=== PATIENT | male | born 1935 | race Caucasian/White ===

== ENCOUNTER 2016-08-26 04:59 | Observation (INO) | payer MEDICARE ==
[2016-08-26] VITALS (7 sets, daily range): BP systolic 122–143; BP diastolic 59–75; PULSE 71–112; RESP 18–20; TEMP 98.2–102.5; O2SAT 90–97
[~2016-08-26] VITALS: Ht 177.8 cm; Wt 90.0 kg
[2016-08-26] MEDS ORDERED: GABA600T PO (05:16)
[2016-08-26] MEDS ORDERED: ZOLP10TA3 PO (05:16)
[2016-08-26] MEDS ORDERED: CLOP75TA PO (05:16)
[2016-08-26] MEDS ORDERED: NITR1SUB2 SL (05:16)
[2016-08-26] MEDS ORDERED: HYDR50TA15 PO (05:16)
[2016-08-26] MEDS ORDERED: NIAC500T5 PO (05:16)
[2016-08-26] MEDS ORDERED: EZET1TAB8 PO (05:16)
[2016-08-26] MEDS ORDERED: OMEP20TA PO (05:16)
[2016-08-26] MEDS ORDERED: AZITHROMYCIN INJ 500 MG in SODIUM CHLOR 0.9% 250 ML INJ 250 ML IV ONE (05:30)
[2016-08-26] MEDS ORDERED: cefTRIAXone INJ 1,000 MG in SODIUM CHLORIDE 0.9% INJ 100 ML IV ONE (05:30)
[2016-08-26] MEDS ORDERED: ACETAMINOPHEN 325 MG TAB PO ONE (05:30)
[2016-08-26] MEDS ORDERED: SODIUM CHLORID 0.9% 500 ML INJ 500 ML IV ONE (05:30)
[2016-08-26 05:44] LABS: AUTOMATED NEUTROPHIL # 13.4 TH/MM3 (1.8-7.7); BASOPHIL % 0.2 % (0.0-2.0); EOSINOPHIL # 0.2 TH/MM3 (0-0.4); EOSINOPHIL % 1.2 % (0.0-4.0); HEMATOCRIT 44.5 % (39.0-51.0); HEMO FLAGS DIFF FINAL; LYMPH % 4.5 % (9.0-44.0); LYMPHOCYTE # 0.7 TH/MM3 (1.0-4.8); MEAN CELL VOLUME 91.3 FL (80.0-100.0); MEAN CORPUSCULAR HEMOGLOBIN 31.5 PG (27.0-34.0); MEAN CORPUSCULAR HGB CONC 34.5 % (32.0-36.0); MONO % 3.2 % (0.0-8.0); NEUT % 90.9 % (16.0-70.0); PLATELET COUNT 196 TH/MM3 (150-450); RED BLOOD COUNT 4.88 MIL/MM3 (4.50-5.90); RED CELL DISTRIBUTION WIDTH 13.6 % (11.6-17.2); WHITE BLOOD COUNT 14.8 TH/MM3 (4.0-11.0)
[2016-08-26 05:56] LABS: APTT (PATIENT) 23.8 SEC (24.3-30.1); PROTHROMBIN TIME - PATIENT 11.3 SEC (9.8-11.6)
[2016-08-26 06:10] LABS: ALKALINE PHOSPHATASE 126 U/L (45-117); ALT (GPT) 23 U/L (12-78); ANION GAP 8 MEQ/L (5-15); AST (GOT) 36 U/L (15-37); BICARBONATE 23.7 MEQ/L (21.0-32.0); BLOOD UREA NITROGEN 28 MG/DL (7-18); CHLORIDE 108 MEQ/L (98-107); CREATINE KINASE 90 U/L (39-308); GLOMERULAR FILTRATION RATE 50 ML/MIN (>89); MAGNESIUM 1.6 MG/DL (1.5-2.5); POTASSIUM 4.6 MEQ/L (3.5-5.1); SODIUM (NA) 140 MEQ/L (136-145); TOTAL BILIRUBIN ADULT 0.4 MG/DL (0.2-1.0)
--- NOTE | 2016-08-26 06:13 | RADRPT ---
EXAM DATE/TIME: 08/26/2016 06:03 [facility] COMPARISON: No previous studies available for comparison. INDICATIONS : Fever and short of breath. MEDICAL HISTORY : Myocardial infarction. SURGICAL HISTORY : Coronary artery stent. ENCOUNTER: Initial ACUITY: 1 day PAIN SCORE: 0/10 LOCATION: Bilateral chest FINDINGS: Left lung is clear. Heart size normal. Aorta is tortuous and calcified. There is consolidation in the right upper and lower lobes. No effusions. CONCLUSION: Pneumonia. Juan R Glez MD on August 26, 2016 at 6:11 Board Certified Radiologist. This report was verified electronically.
[2016-08-26] MEDS ORDERED: IOHEXOL 350 MG/ML 50 ML BTL (for RAD DIAG) IV ONE (07:10)
[2016-08-26] MEDS ORDERED: NALOXONE HCL 0.4 MG/ML AMP IV PRN (07:15)
[2016-08-26] MEDS ORDERED: SODIUM CHLORIDE 0.9% FLUSH 5 ML FLUSH FLUSH PRN (07:15)
[2016-08-26] MEDS ORDERED: ONDANSETRON HCL 4 MG/2 ML VIAL IVP PRN (07:15)
--- NOTE | 2016-08-26 07:45 | RADRPT ---
EXAM DATE/TIME: 08/26/2016 07:07 [facility] COMPARISON: CHEST SINGLE AP, August 26, 2016, 6:03. INDICATIONS : Short of breath. Fever. IV CONTRAST: 50 cc Omnipaque 350 (iohexol) IV RADIATION DOSE: 23.16 CTDIvol (mGy) MEDICAL HISTORY : Hypertension. SURGICAL HISTORY : Appendectomy. ENCOUNTER: Initial ACUITY: 1 day PAIN SCALE: 0/10 LOCATION: chest TECHNIQUE: Volumetric scanning of the chest was performed using a pulmonary embolism protocol MIP images were re constructed. Using automated exposure control and adjustment of the mA and/or kV according to patien t size, radiation dose was kept as low as reasonably achievable to obtain optimal diagnostic quality images. FINDINGS: PULMONARY ARTERIES: No filling defects are seen in the pulmonary arteries through the segmental level. LUNGS: As noted on the plain film examination, there is a rather extensive pneumonic infiltrate involving po rtions of the upper and lower lobe. PLEURAE: There is no pleural thickening or pleural effusion. MEDIASTINUM: There is good visualization of the great vessels of the middle mediastinum. No evidence of mediastin al or hilar adenopathy/mass. Atherosclerotic calcification of the coronary arteries and thoracic aort a. MUSCULOSKELETAL: Within normal limits for patient age. MISCELLANEOUS: The visualized upper abdominal organs demonstrate no acute abnormality. There may be a punctate galls tone in the gallbladder neck. CONCLUSION: 1. Pneumonic infiltrate involving portions of the right upper and right lower lobe. 2. No pulmonary embolus. Benji Cuevas MD on August 26, 2016 at 7:41 Board Certified Radiologist. This report was verified electronically.
[2016-08-26] MEDS ORDERED: SODIUM CHLOR 0.9% 1000 ML INJ 1,000 ML IV ONE ×2 (07:53)
[2016-08-26] MEDS ORDERED: SODIUM CHLOR 0.9% 1000 ML INJ 700 ML IV ONE (07:53)
--- NOTE | 2016-08-26 07:53 | PD ---
HPI Chief Complaint: Fever Time Seen by Provider: 05:18 Travel History International Travel<30 days: No Contact w/Intl Traveler<30days: No Traveled to known affect area: No History of Present Illness HPI The patient is an 81 year old male who presents to the [facility] emergency department with a history of awakening with chills, right versus 4 AM. The patient reports that he also noticed at that time that he had congestion and a cough. Prior to this he had been feeling well. He reports that on August 10 he underwent an eyelid lifts and has been recovering well. He reports that since then he has been urinating more frequently at night. He reports that normally he urinates 2 times per night, however recently it is been 4 times per night. The patient reports that he does have a history of benign prostatic hypertrophy. He denies having any dysuria or urinary urgency. He reports that he recently did travel from [place]. He is visiting friends. He reports that he only stopped once during the travel by car. He denies having any lower extremity edema, calf pain, or erythema. He does however report having a history of right foot pain intermittently for the last 4 days. He denies having any erythema or ecchymosis. He denies having any known trauma to the foot. The patient denies having any chest pain or chest pressure. He reports that he has had dyspnea on exertion since yesterday. The patient arrives with an O2 saturation on room air of 89%Th With an elevated temperature to 102.5. The patient denies any neck pain, abdominal pain, vomiting, diarrhea, or neurologic symptoms. [facility] Past Medical History Narrative Medical The patient's past medical history is significant for benign prostatic hypertrophy, hyperlipidemia, hypertension, coronary artery disease status post 2 prior myocardial infarctions. The patient had his first myocardial infarction in 2009, second 2012. He had a cerebrovascular accident in 2012 without any residual weakness, history of a heart murmur. The patient denies any prior history of DVT or PE. Cardiac Catheterization: Yes High Cholesterol: Yes Diminished Hearing: No Hypertension: Yes Medical other: Yes (BPH) Tetanus Vaccination: Unknown Influenza Vaccination: Yes Past Surgical History Narrative Surgical The patient's past surgical history is significant for an appendectomy, back surgery, cardiac catheterization with a total of 11 stents placed, eyelid lift August 10, 2016, bilateral knee replacement. Appendectomy: Yes Eye Surgery: Yes (EYELID SX 08/10/16) Other Surgery: Yes (BACK SX) Social History Alcohol Use: Yes (DAILY, COUPLE DAILY) Tobacco Use: No Substance Use: No Allergies-Medications (Allergen,Severity, Reaction): Coded Allergies: No Known Allergies (Unverified , 08/26/16) Reported Meds & Prescriptions Reported Meds & Active Scripts Active Reported Aspirin 81 Mg Tabdr 81 Mg PO DAILY Amlodipine (Amlodipine Besylate) 10 Mg Tab 10 Mg PO DAILY Tamsulosin (Tamsulosin HCl) 0.4 Mg Cap 0.4 Mg PO DAILY Hydrocodone-Acetaminophen 5-325 mg Tab 1 Tab PO Q4H PRN Zolpidem (Zolpidem Tartrate) 10 Mg Tab 10 Mg PO HS PRN Omeprazole 20 Mg Tab 20 Mg PO DAILY Nitroglycerin SL (Nitroglycerin) 0.3 Mg Subl 0.3 Mg SL DIRECTED PRN ONE TABLET UNDER THE TONGUE NEEDED FOR CHEST PAIN, MAY REPEAT EVERY FIVE MINUTES FOR A TOTAL OF 3 DOSES OR CALL 911 IF NO RELIEF Niacin 500 Mg Tab 500 Mg PO DAILY Hydralazine (Hydralazine HCl) 50 Mg Tab 25 Mg PO BID Take with a meal Ezetimibe 10 Mg Tab 10 Mg PO DAILY Clopidogrel (Clopidogrel Bisulfate) 75 Mg Tab 75 Mg PO DAILY Gabapentin 600 Mg Tab 600 Mg PO TID Review of Systems Except as stated in HPI: all other systems reviewed are Neg General / Constitutional: Positive: Fever, Chills Eyes: No: Visual changes HENT: Positive: Congestion, No: Headaches Cardiovascular: Positive: Dyspnea on exertion, No: Chest Pain or Discomfort Respiratory: Positive: Cough, Shortness of Breath Gastrointestinal: No: Nausea, Vomiting, Diarrhea, Abdominal Pain Genitourinary: Positive: Frequency, No: Urgency, Dysuria Musculoskeletal: No: Pain Skin: No Rash Neurologic: No: Weakness, Focal Abnormalities, Change in Mentation, Slurred Speech, Sensory Disturbance Psychiatric: No: Depression Endocrine: No: Polydipsia Hematologic/Lymphatic: No: Easy Bruising Physical Exam Narrative General: The patient is a well-developed well-nourished male in no acute distress. Head and Neck exam: Head is normocephalic atraumatic. Eyes: EOMI, pupils are equal round and reactive to light. Nose: Midline septum with pink mucous membranes Mouth: Dentition unremarkable. Moist mucus membranes. Posterior oropharynx is not erythematous. No tonsillar hypertrophy. Uvula midline. Airway patent. Neck: No palpable lymphadenopathy. No nuchal rigidity. No thyromegaly. Cardiovascular: Regular rate and rhythm with 3/6 systolic murmur. The patient reports having a chronic history of a murmur. No pulse deficit to the extremities and simultaneous auscultation and palpation of his radial artery. Lungs: The patient has scattered rhonchi throughout bilateral lung pandya with crackles audible in the left lung base. No wheezes, no accessory muscle use. No tripoding. Abdomen: Soft, without tenderness to palpation in all 4 quadrants of the abdomen. No guarding, rebound, or rigidity. Negative [place] sign. Extremities: No clubbing, cyanosis, or edema. 2+ pulses in all 4 extremities. No calf tenderness on palpation. The patient on examination of the right foot where he has had pain recently, the patient has no swelling, no ecchymosis, no crepitus or step-off. No pain on palpation at this time. Back: No spinous process tenderness to palpation. No costovertebral angle tenderness to palpation. Neurologic Exam: Grossly nonfocal. Skin Exam: No rash noted. Intact skin that is warm and dry. Data Data Last Documented VS Vital Signs Date Time Temp Pulse Resp B/P Pulse Ox O2 Delivery O2 Flow Rate FiO2 08/26/16 05:50 18 91 Nasal Cannula 2 08/26/16 05:02 102.5 112 128/68 Orders Electrocardiogram (08/26/16 05:19) Complete Blood Count With Diff (08/26/16 05:19) Comprehensive Metabolic Panel (08/26/16 05:19) Creatine Kinase (Cpk) (08/26/16 05:19) Ckmb (Isoenzyme) Profile (08/26/16 05:19) Troponin I (08/26/16 05:19) B-Type Natriuretic Peptide (08/26/16 05:19) Prothrombin Time / Inr (Pt) (08/26/16 05:19) Act Partial Throm Time (Ptt) (08/26/16 05:19) Blood Culture (08/26/16 05:19) C-Reactive Protein (Crp) (08/26/16 05:19) Lipase (08/26/16 05:19) Urinalysis - C+S If Indicated (08/26/16 05:19) Magnesium (Mg) (08/26/16 05:19) Influenzae A/B Antigen (08/26/16 05:19) Chest, Single Ap (08/26/16 05:19) Iv Access Insert/Monitor (08/26/16 05:19) Ecg Monitoring (08/26/16 05:19) Oximetry (08/26/16 05:19) Lactic Acid Sepsis Protocol (08/26/16 05:19) Acetaminophen (Tylenol) (08/26/16 05:30) Sodium Chlorid 0.9% 500 Ml Inj (Ns 500 M (08/26/16 05:30) Ceftriaxone Inj (Rocephin Inj) (08/26/16 05:30) Azithromycin Inj (Zithromax Inj) (08/26/16 05:30) Ct Pulmonary Angiogram (08/26/16 06:05) Admit Order (Ed Use Only) (08/26/16 07:00) Labs Laboratory Tests Test 08/26/16 05:25 White Blood Count 14.8 TH/MM3 Red Blood Count 4.88 MIL/MM3 Hemoglobin 15.4 GM/DL Hematocrit 44.5 % Mean Corpuscular Volume 91.3 FL Mean Corpuscular Hemoglobin 31.5 PG Mean Corpuscular Hemoglobin 34.5 % Concent Red Cell Distribution Width 13.6 % Platelet Count 196 TH/MM3 Mean Platelet Volume 6.9 FL Neutrophils (%) (Auto) 90.9 % Lymphocytes (%) (Auto) 4.5 % Monocytes (%) (Auto) 3.2 % Eosinophils (%) (Auto) 1.2 % Basophils (%) (Auto) 0.2 % Neutrophils # (Auto) 13.4 TH/MM3 Lymphocytes # (Auto) 0.7 TH/MM3 Monocytes # (Auto) 0.5 TH/MM3 Eosinophils # (Auto) 0.2 TH/MM3 Basophils # (Auto) 0.0 TH/MM3 CBC Comment DIFF FINAL Differential Comment Prothrombin Time 11.3 SEC Prothromb Time International 1.0 RATIO Ratio Activated Partial 23.8 SEC Thromboplast Time Sodium Level 140 MEQ/L Potassium Level 4.6 MEQ/L Chloride Level 108 MEQ/L Carbon Dioxide Level 23.7 MEQ/L Anion Gap 8 MEQ/L Blood Urea Nitrogen 28 MG/DL Creatinine 1.38 MG/DL Estimat Glomerular Filtration 50 ML/MIN Rate Random Glucose 117 MG/DL Lactic Acid Level 1.6 mmol/L Calcium Level 8.6 MG/DL Magnesium Level 1.6 MG/DL Total Bilirubin 0.4 MG/DL Aspartate Amino Transf 36 U/L (AST/SGOT) Alanine Aminotransferase 23 U/L (ALT/SGPT) Alkaline Phosphatase 126 U/L Total Creatine Kinase 90 U/L Troponin I LESS THAN 0.02 NG/ML C-Reactive Protein 1.85 MG/DL B-Type Natriuretic Peptide 54 PG/ML Total Protein 6.7 GM/DL Albumin 3.0 GM/DL Lipase 176 U/L [facility] Medical Decision Making Medical Screen Exam Complete: Yes Emergency Medical Condition: Yes Medical Record Reviewed: Yes Interpretation(s) Last Impressions Chest X-Ray 08/26/16 0519 Signed Impressions: Service Date/Time: Friday, August 26, 2016 06:03 - CONCLUSION: Pneumonia. Juan R Glez MD Differential Diagnosis Pneumonia, versus pyelonephritis, versus prostatitis, versus sepsis of undetermined origin, versus pulmonary embolism Narrative Course During the course of the patients emergency department visit, the patients history, examination, and differential diagnosis were reviewed with the patient. The patient had IV access obtained and blood work sent for analysis. The patient was placed on a panel monitor with oximetry and blood pressure monitoring. An EKG was done on arrival. The patient's EKG reveals a sinus rhythm heart rate of 93, left axis deviation with a left bundle branch block is noted, no other acute findings are noted. CTA to rule out PE has been ordered. The patient was provided Tylenol 650 by mouth 1 for fever. The patient was started on normal saline a 500 mL bolus. The patient was given Rocephin 1 g IV , Zithromax 500 IV. The patients laboratory studies were reviewed and remarkable for an elevated white count at 14, white count 13.4, platelets 196, neutrophils 90.9. CMP is remarkable for chloride of 108, BUN 28, creatinine 1.38, glucose 117, alkaline phosphatase 126, CPK 90, troponin I less than 0.0 0.02, C-reactive protein 1.85. BNP is 54. Lactic acid is 1.6 Radiology studies were reviewed and remarkable for a chest x-ray that shows pneumonia. CTA to rule out PE shows a pneumonic infiltrate involving portions of the right upper and right lower lobe, no pulmonary embolism. The patients results were discussed with the patient, including the plan of care. I explained that further testing and/ or monitoring is indicated based on the patients history, examination, and/ or laboratory findings. Therefore, I recommended admission for additional evaluation. The patient expressed understanding and was agreeable with this plan. The patient was admitted to the hospital in stable condition and sent to a bed [facility]. Sepsis Criteria SIRS Criteria (2 or more): Temp > 100.9 or < 96.8, Heart rate over 90, WBC > 54583, < 4000 or > 10% bands Sepsis Criteria (SIRS+source): Infect source susp/known Criteria Outcome: Meets SIRS criteria, Meets sepsis criteria Physician Communication Physician Communication The patient's case is discussed with Dr. Bruce who did agree to admit the patient for further evaluation and treatment at this time. Diagnosis Primary Impression: Pneumonia Qualified Code: J18.9 - Pneumonia of right lung due to infectious organism, unspecified part of lung Additional Impression: Hypoxemia Admitting Information Admitting Physician Requests: it Paula Valero MD Aug 26, 2016 07:53
[2016-08-26 08:46] LABS: BLOOD, URINE NEG (NEG); GLUCOSE,URINE NEG (NEG); KETONE, URINE NEG (NEG); NITRITE,URINE NEG (NEG); SQUAMOUS EPITHELIAL CELL URINE <1 /hpf (0-5); URINE COLOR YELLOW (YELLW/STRAW)
[2016-08-26 08:50] LABS: COMMENT (UR) CULT NOT INDICATED; CULTURE IF INDICATED CULT NOT INDICATED
[2016-08-26] MEDS: GABAPENTIN 300 MG CAP PO SCH ×2 (09:00→22:43)
[2016-08-26] MEDS: hydrALAZINE HCL 50 MG TAB PO SCH ×2 (09:00→22:43)
[2016-08-26] MEDS: NIACIN 250 MG CONTROLLED RELEASE TAB PO SCH ×2 (09:00→21:00)
[2016-08-26] MEDS: EZETIMIBE 10 MG TAB PO SCH (09:00)
--- NOTE | 2016-08-26 10:01 | EKG ---
Date Performed: 08/26/2016 Time Performed: 06:03:43 PTAGE: 81 years EKG: Sinus rhythm MARKED LEFT AXIS DEVIATION LEFT BUNDLE BRANCH BLOCK ABNORMAL ECG NO PREVIOUS TRACING DOCTOR: Korey Galicia Interpretating Date/Time 08/26/2016 09:58:50
[2016-08-26] MEDS ORDERED: HYDR-3516 PO (10:23)
[2016-08-26] MEDS ORDERED: AMLO10TA2 PO (10:25)
[2016-08-26] MEDS ORDERED: TAMS0.4C4 PO (10:25)
[2016-08-26] MEDS ORDERED: ASPI1TAB69 PO (10:29)
[2016-08-26] MEDS ORDERED: ASPI81TA81 (10:29)
[2016-08-26] MEDS: SODIUM CHLORIDE 0.9% FLUSH 5 ML FLUSH FLUSH SCH ×2 (11:16→22:45)
[2016-08-26] MEDS: ENOXAPARIN SODIUM 40 MG/0.4 ML SYRINGE SQ SCH (11:17)
[2016-08-26] MEDS: PANTOPRAZOLE SOD 20 MG DELAYED RELEASE TAB PO SCH (11:17)
[2016-08-26] MEDS: CLOPIDOGREL 75 MG TAB PO SCH (11:17)
[2016-08-26] MEDS ORDERED: ACETAMINOPHEN 325 MG TAB PO PRN (16:45)
--- NOTE | 2016-08-26 17:21 | HHI.HP ---
HPI Service [facility] Primary Care Physician Non-Staff Admission Diagnosis Pneumonia Diagnoses: Travel History International Travel<30 Days: No Contact w/Intl Traveler <30 Da: Yes Name of Country Traveled to: [place], [place] Traveled to Known Affected Are: No History of Present Illness 81-year-old male with a history of coronary artery disease, hypertension, hyperlipidemia, abdominal aortic repair, GERD, who presents with acute onset fevers and chills, as well as nonproductive cough upon waking at 4 AM this morning. He denies any shortness of breath or chest pain. Denies any dysuria, or hematuria. Denies any nausea or vomiting. Patient was started on antibiotics in the ER. CT pulmonary angiogram with no evidence of PE, however does show right-sided pneumonia. Patient reports chills have improved, however not completely resolved. Patient reports previously feeling well Patient reports driving to [place] from [place] about one week ago, following right eye surgery. He has been staying in his girl[facility] , together with his daughter and her . He denies any changes in medications recently, and again reports feeling well prior to this morning.. Review of Systems performed and negative except for HPI and past medical history. Past Family Social History Past Medical History Coronary artery disease status post 11 stents in the past Hypertension History of abdominal aortic repair GERD. Cerebrovascular accident in 2012 without any residual weakness BPH Insomnia. Past Surgical History Abdominal aortic aneurysmrepair Multiple cardiac stents Bilateral knee replacements Eyelid surgery Thursday of last week - cosmetic for drooping eyelids. Back surgery Reported Medications Reported Meds & Active Scripts Active Reported Zolpidem (Zolpidem Tartrate) 10 Mg Tab 10 Mg PO HS PRN Omeprazole 20 Mg Tab 20 Mg PO DAILY Nitroglycerin SL (Nitroglycerin) 0.3 Mg Subl 0.3 Mg SL DIRECTED PRN ONE TABLET UNDER THE TONGUE NEEDED FOR CHEST PAIN, MAY REPEAT EVERY FIVE MINUTES FOR A TOTAL OF 3 DOSES OR CALL 911 IF NO RELIEF Niacin 500 Mg Tab 500 Mg PO BID Hydralazine (Hydralazine HCl) 50 Mg Tab 50 Mg PO BID Take with a meal Ezetimibe 10 Mg Tab 10 Mg PO DAILY Clopidogrel (Clopidogrel Bisulfate) 75 Mg Tab 75 Mg PO DAILY Gabapentin 600 Mg Tab 600 Mg PO BID Allergies: Coded Allergies: No Known Allergies (Unverified , 08/26/16) Family History Mother from suspected cancer. Father committed suicide Social History Past smoker. Patient smoked 1 pack per day for 50 years, quitting in 2009. Patient drinks one drink on average 3 times per week. He denies any history of withdrawal.he denies any illicit drugs. Physical Exam Vital Signs Vital Signs Date Time Temp Pulse Resp B/P Pulse Ox O2 Delivery O2 Flow Rate FiO2 08/26/16 16:14 77 08/26/16 15:12 99.7 72 18 136/65 92 08/26/16 10:52 100.0 71 20 122/59 95 08/26/16 09:42 100.8 08/26/16 05:50 18 91 Nasal Cannula 2 08/26/16 05:09 16 98 Room Air 08/26/16 05:02 102.5 112 18 128/68 90 Physical Exam GENERAL: This is a well-nourished, well-developed patient, in no apparent distress.alert and oriented 3 SKIN: No rashes, ecchymoses or lesions. Cool and dry. HEAD: Atraumatic. Normocephalic. No temporal or scalp tenderness. EYES: Pupils equal round and reactive. Extraocular motions intact. No scleral icterus. No injection or drainage. patient has had bilateral eyelid surgery which appears to be healing quite well. ENT: Nose without bleeding, purulent drainage or septal hematoma. Throat without erythema, tonsillar hypertrophy or exudate. Uvula midline. Airway patent. NECK: Trachea midline. No JVD or lymphadenopathy. Supple, nontender, no meningeal signs. CARDIOVASCULAR: Regular rate and rhythm without murmurs, gallops, or rubs. RESPIRATORY: Clear to auscultation. Breath sounds equal bilaterally. No wheezes , rales, or rhonchi. GASTROINTESTINAL: Abdomen soft, non-tender, nondistended. No hepato-splenomegaly , or palpable masses. No guarding. MUSCULOSKELETAL: Extremities without clubbing, cyanosis, or edema. No joint tenderness, effusion, or edema noted. No calf tenderness. Negative [place] sign bilaterally. NEUROLOGICAL: Awake and alert. Cranial nerves II through XII intact. Motor and sensory grossly within normal limits. Five out of 5 muscle strength in all muscle groups. Normal speech. Laboratory Laboratory Tests Test 08/26/16 08/26/16 05:25 08:30 White Blood Count 14.8 Red Blood Count 4.88 Hemoglobin 15.4 Hematocrit 44.5 Mean Corpuscular Volume 91.3 Mean Corpuscular Hemoglobin 31.5 Mean Corpuscular Hemoglobin 34.5 Concent Red Cell Distribution Width 13.6 Platelet Count 196 Mean Platelet Volume 6.9 Neutrophils (%) (Auto) 90.9 Lymphocytes (%) (Auto) 4.5 Monocytes (%) (Auto) 3.2 Eosinophils (%) (Auto) 1.2 Basophils (%) (Auto) 0.2 Neutrophils # (Auto) 13.4 Lymphocytes # (Auto) 0.7 Monocytes # (Auto) 0.5 Eosinophils # (Auto) 0.2 Basophils # (Auto) 0.0 CBC Comment DIFF FINAL Differential Comment Prothrombin Time 11.3 Prothromb Time International 1.0 Ratio Activated Partial 23.8 Thromboplast Time Sodium Level 140 Potassium Level 4.6 Chloride Level 108 Carbon Dioxide Level 23.7 Anion Gap 8 Blood Urea Nitrogen 28 Creatinine 1.38 Estimat Glomerular Filtration 50 Rate Random Glucose 117 Lactic Acid Level 1.6 Calcium Level 8.6 Magnesium Level 1.6 Total Bilirubin 0.4 Aspartate Amino Transf 36 (AST/SGOT) Alanine Aminotransferase 23 (ALT/SGPT) Alkaline Phosphatase 126 Total Creatine Kinase 90 Troponin I LESS THAN 0.02 C-Reactive Protein 1.85 B-Type Natriuretic Peptide 54 Total Protein 6.7 Albumin 3.0 Lipase 176 Urine Color YELLOW Urine Turbidity CLEAR Urine pH 5.0 Urine Specific [place] 1.029 Urine Protein TRACE Urine Glucose (UA) NEG Urine Ketones NEG Urine Occult Blood NEG Urine Nitrite NEG Urine Bilirubin NEG Urine Urobilinogen LESS THAN 2.0 Urine Leukocyte Esterase NEG Urine RBC LESS THAN 1 Urine WBC 2 Urine Squamous Epithelial <1 Cells Microscopic Urinalysis Comment CULT NOT INDICATED Date/Time Procedure Status Source Growth 08/26/16 05:35 Influenza Types A,B Antigen (JOSE) - Final Complete Nasal Aspirate NEGATIVE FOR FLU A AND B ANTIGEN.... 08/26/16 05:25 Aerobic Blood Culture Received Blood Peripheral Pending 08/26/16 05:25 Anaerobic Blood Culture Received Blood Peripheral Pending Result Diagram: 08/26/1652408/26/[address] Angiography 08/26/16 0605 Signed Impressions: Service Date/Time: Friday, August 26, 2016 07:07 - CONCLUSION: 1. Pneumonic infiltrate involving portions of the right upper and right lower lobe. 2. No pulmonary embolus. Benji Cuevas MD Chest X-Ray 08/26/16 0519 Signed Impressions: Service Date/Time: Friday, August 26, 2016 06:03 - CONCLUSION: Pneumonia. Juan R Glez MD Assessment and Plan Assessment and Plan //Sepsis. Acute. Improving with antibiotics. -Admission With fever 102.5, tachycardia, leukocytosis 14.8. -Lactate within normal limits. -Right sided pneumonia on CT scan. Negative for PE. -Urinalysis appears noninfectious Continue antibiotics as below for pneumonia. //Right-sided pneumonia. -Due to sudden onset of symptoms in the middle of the night, suspicion of reflux /aspiration event. -Patient could have been oversedated from gabapentin 600 mg by mouth 3 times a day in setting of impaired renal function. -Started azithromycin and Rocephin in ER. -Switch Rocephin to Unasyn for anaerobic coverage. -Incentive spirometry and Acapella. //Impaired renal function Unknown if chronic or acute. We'll continue to monitor. //Coronary artery disease //Hypertension //Hyperlipidemia -Continue aspirin, Plavix -Hold amlodipine for today in the setting of sepsis. Continue other blood pressure meds. Restart medications as necessary. -Continue ezetimibe, niacin //BPH. Restart Flomax. //GERD. Continue PPI. //Chronic pain. -Continue gabapentin at decreased dose. -Is on 600 milligrams by mouth 3 times a day at home. -Give 600 mg twice daily here //Chronic insomnia. Will avoid Ambien for now to avoid confusion in the hospital. //Prophylaxis. SCDs. Lovenox. Code Status full code -Patient requests emergent medical care in the event of cardiopulmonary arrest, however does not one to remain on a ventilator for any extended period of time. He designates his daughter as healthcare surrogate and the event he is unable to make medical decisions. Discussed Condition With patient, nurse Physician Certification 2 Midnight Certification Type: Admission for Inpatient Services Order for Inpatient Services The services are ordered in accordance with Medicare regulations or non- Medicare payer requirements, as applicable. In the case of services not specified as inpatient-only, they are appropriately provided as inpatient services in accordance with the 2-midnight benchmark. Estimated LOS (days): 2 days is the estimated time the patient will need to remain in the hospital, assuming treatment plan goals are met and no additional complications. Post-Hospital Plan: Not yet determined Zohaib Haines MD Aug 26, 2016 17:21
[2016-08-26] MEDS: AMPICILLIN-SULBACTAM INJ 1,500 MG in SODIUM CHLORIDE 0.9% INJ 100 ML IV SCH (17:29)
[2016-08-26] MEDS ORDERED: cefTRIAXone INJ 1,000 MG in SODIUM CHLORIDE 0.9% INJ 100 ML IV SCH (18:00)
[2016-08-27] VITALS (8 sets, daily range): BP systolic 97–159; BP diastolic 54–75; PULSE 66–83; RESP 18–20; TEMP 97.5–99.9; O2SAT 91–97
[2016-08-27] MEDS: AMPICILLIN-SULBACTAM INJ 1,500 MG in SODIUM CHLORIDE 0.9% INJ 100 ML IV SCH ×5 (00:51→23:30)
[2016-08-27 05:24] LABS: AUTOMATED NEUTROPHIL # 17.2 TH/MM3 (1.8-7.7); BASOPHIL % 0.2 % (0.0-2.0); EOSINOPHIL # 0.1 TH/MM3 (0-0.4); EOSINOPHIL % 0.7 % (0.0-4.0); HEMATOCRIT 41.1 % (39.0-51.0); HEMO FLAGS DIFF FINAL; LYMPHOCYTE # 1.2 TH/MM3 (1.0-4.8); MEAN CELL VOLUME 93.3 FL (80.0-100.0); MEAN CORPUSCULAR HEMOGLOBIN 30.7 PG (27.0-34.0); MEAN CORPUSCULAR HGB CONC 32.9 % (32.0-36.0); MONO % 4.1 % (0.0-8.0); PLATELET COUNT 184 TH/MM3 (150-450); RED BLOOD COUNT 4.41 MIL/MM3 (4.50-5.90); RED CELL DISTRIBUTION WIDTH 13.9 % (11.6-17.2); WHITE BLOOD COUNT 19.4 TH/MM3 (4.0-11.0)
[2016-08-27 05:49] LABS: BICARBONATE 24.5 MEQ/L (21.0-32.0); POTASSIUM 4.1 MEQ/L (3.5-5.1)
[2016-08-27] MEDS: AZITHROMYCIN INJ 250 MG in SODIUM CHLOR 0.9% 250 ML INJ 250 ML IV SCH (07:57)
[2016-08-27] MEDS: ENOXAPARIN SODIUM 40 MG/0.4 ML SYRINGE SQ SCH (09:00)
[2016-08-27] MEDS: SODIUM CHLORIDE 0.9% FLUSH 5 ML FLUSH FLUSH SCH ×2 (09:00→22:13)
[2016-08-27] MEDS: NIACIN 250 MG CONTROLLED RELEASE TAB PO SCH ×2 (09:14→21:00)
[2016-08-27] MEDS: TAMSULOSIN HCL 0.4 MG CAP PO SCH (09:15)
[2016-08-27] MEDS: ASPIRIN EC 81 MG TABEC PO SCH (09:15)
[2016-08-27] MEDS: GABAPENTIN 300 MG CAP PO SCH ×2 (09:15→22:14)
[2016-08-27] MEDS: EZETIMIBE 10 MG TAB PO SCH (09:16)
[2016-08-27] MEDS: hydrALAZINE HCL 50 MG TAB PO SCH ×2 (09:16→21:00)
[2016-08-27] MEDS: CLOPIDOGREL 75 MG TAB PO SCH (09:16)
[2016-08-27] MEDS: PANTOPRAZOLE SOD 20 MG DELAYED RELEASE TAB PO SCH (09:16)
--- NOTE | 2016-08-27 11:12 | RADRPT ---
EXAM DATE/TIME: 08/27/2016 08:36 [facility] COMPARISON: CHEST SINGLE AP, August 26, 2016, 6:03. INDICATIONS : Pneumonia. MEDICAL HISTORY : Hypertension. SURGICAL HISTORY : Appendectomy. ENCOUNTER: Subsequent ACUITY: 2 days PAIN SCORE: 0/10 LOCATION: chest FINDINGS: The heart is normal in size. The mediastinal contours are within normal limits. The examination demon strates diffuse parenchymal infiltrate involving the right upper right lower lobe. Findings are consi stent with lobar pneumonia. Changes appear similar to previous examination of 08/26/16. The left lung is clear. The visualized bony structures are grossly intact. There are old, healed left-sided rib fractures. CONCLUSION: 1. Right-sided pneumonia relatively stable compared to previous study. Amado Mills MD on August 27, 2016 at 11:09 Board Certified Radiologist. This report was verified electronically.
[2016-08-27] MEDS: RESP: ALBUTEROL 2.5 MG/IPRATROPIUM 0.5 MG NEB (SCH) NEB ×2 (14:23→20:28)
--- NOTE | 2016-08-27 14:27 | HHI.PR ---
Subjective Remarks Patient seen today around noon. Says he is feeling better and yesterday. Cough continues, however today is productive of clear sputum with small amount of blood. He denies any chest pain or shortness of breath. Objective Vital Signs Date Time Temp Pulse Resp B/P Pulse Ox O2 Delivery O2 Flow Rate FiO2 08/27/16 11:04 98.6 74 18 132/64 94 08/27/16 07:26 99.0 73 18 159/70 95 08/27/16 02:21 98.1 77 18 136/75 97 08/26/16 19:55 98.2 89 18 143/75 97 08/26/16 16:14 77 08/26/16 15:12 99.7 72 18 136/65 92 I/O 08/26/16 08/26/16 08/26/16 08/27/16 08/27/16 08/27/16 07:00 15:00 23:00 07:00 15:00 23:00 Output Total 250 ml Balance -250 ml Output Urine Total 250 ml # Voids 3 2 Result Diagram: 08/27/16 0425 08/27/16 0425 Imaging Last Impressions Chest X-Ray 08/27/16 0000 Signed Impressions: Service Date/Time: Saturday, August 27, 2016 08:36 - CONCLUSION: 1. Right-sided pneumonia relatively stable compared to previous study. Amado Mills MD CT Angiography 08/26/16 0605 Signed Impressions: Service Date/Time: Friday, August 26, 2016 07:07 - CONCLUSION: 1. Pneumonic infiltrate involving portions of the right upper and right lower lobe. 2. No pulmonary embolus. Benji Cuevas MD Objective Remarks GENERAL: Patient lying in bed. Appears comfortable. On 2 L nasal cannula. Alert and oriented 3. Family at bedside. SKIN: Warm and dry. HEAD: Normocephalic. EYES: No scleral icterus. No injection or drainage. NECK: Supple, trachea midline. No JVD. CARDIOVASCULAR: Regular rate and rhythm without murmurs, gallops, or rubs. RESPIRATORY: She does have crackles over the right mid lung. No rhonchi or wheezes. GASTROINTESTINAL: Abdomen soft, non-tender, nondistended. MUSCULOSKELETAL: No cyanosis, or edema. BACK: Nontender without obvious deformity. No CVA tenderness. A/P Assessment and Plan //Sepsis. Acute. Improving with antibiotics. -Admission With fever 102.5, tachycardia, leukocytosis 14.8. -Lactate within normal limits. -Right sided pneumonia on CT scan. Negative for PE. -Urinalysis appears noninfectious 08/27. Improving, however leukocytosis worsening. New hemoptysis. Continue antibiotics. //Right-sided pneumonia. -Due to sudden onset of symptoms in the middle of the night, suspicion of reflux /aspiration event. -Patient could have been oversedated from gabapentin 600 mg by mouth 3 times a day in setting of impaired renal function. -Started azithromycin and Rocephin in ER. -Switch Rocephin to Unasyn for anaerobic coverage. Continue-Incentive spirometry and Acapella. -08/27. Appears to be clinically improving, with the exception of new mild hemoptysis. Chest x-ray stable. Pulmonology consultation. Continue antibiotics. I to wean oxygen. Oxygen evaluation ordered and pending. //Impaired renal function Unknown if chronic or acute. Continues stable. Continue to monitor. //Coronary artery disease //Hypertension //Hyperlipidemia -Continue aspirin, Plavix -Hold amlodipine for today in the setting of sepsis. Continue other blood pressure meds. Restart medications as necessary. -Continue ezetimibe, niacin -08/27. Blood pressure slightly elevated today. Will start back home medications. //BPH. Continue home Flomax. //GERD. Continue PPI. //Chronic pain. -Continue gabapentin at decreased dose. -Is on 600 milligrams by mouth 3 times a day at home. -Continue to Give 600 mg twice daily here //Chronic insomnia. Will continue to avoid Ambien for now to avoid confusion in the hospital. //Prophylaxis. SCDs. Lovenox. Discharge Planning Possible discharge home tomorrow. Oxygen evaluation pending. Pulmonology consult pending Physical therapy reports no need for home care Zohaib Haines MD Aug 27, 2016 14:27
[2016-08-27] MEDS ORDERED: ZOLPIDEM TARTRATE 5 MG TAB PO PRN (20:15)
[2016-08-28 04:00] VITALS: BP 144/66; PULSE 70; RESP 20; TEMP 98.7; O2SAT 95
[2016-08-28] MEDS: AMPICILLIN-SULBACTAM INJ 1,500 MG in SODIUM CHLORIDE 0.9% INJ 100 ML IV SCH (04:50)
[2016-08-28] MEDS: AZITHROMYCIN INJ 250 MG in SODIUM CHLOR 0.9% 250 ML INJ 250 ML IV SCH (06:08)
[2016-08-28] MEDS: RESP: ALBUTEROL 2.5 MG/IPRATROPIUM 0.5 MG NEB (SCH) NEB (07:30)
[2016-08-28 07:39] VITALS: BP 150/71; PULSE 74; RESP 18; TEMP 99.2; O2SAT 91
[2016-08-28 08:00] VITALS: PULSE 85
[2016-08-28] MEDS: TAMSULOSIN HCL 0.4 MG CAP PO SCH (08:01)
[2016-08-28] MEDS: PANTOPRAZOLE SOD 20 MG DELAYED RELEASE TAB PO SCH (08:01)
[2016-08-28] MEDS: hydrALAZINE HCL 50 MG TAB PO SCH (08:01)
[2016-08-28] MEDS: CLOPIDOGREL 75 MG TAB PO SCH (08:01)
[2016-08-28] MEDS: GABAPENTIN 300 MG CAP PO SCH (08:01)
[2016-08-28] MEDS: ASPIRIN EC 81 MG TABEC PO SCH (08:01)
[2016-08-28] MEDS: NIACIN 250 MG CONTROLLED RELEASE TAB PO SCH (08:01)
[2016-08-28] MEDS: EZETIMIBE 10 MG TAB PO SCH (08:02)
[2016-08-28] MEDS: ENOXAPARIN SODIUM 40 MG/0.4 ML SYRINGE SQ SCH (08:02)
[2016-08-28] MEDS: SODIUM CHLORIDE 0.9% FLUSH 5 ML FLUSH FLUSH SCH (08:02)
[2016-08-28] MEDS ORDERED: AUGM875T PO (09:46)
--- NOTE | 2016-09-01 08:14 | HHI.PR ---
Subjective Remarks date of service 08/28/16. Patient seen in the morning prior to discharge. Says he feels great. walking all over the observation unit. Denies any chest pain or shortness of breath. Family reports that he had been drinking heavily on his [birth year], and may have had an issue with reflux around that time. family and patient denies any as a problem with drinking. I have strongly recommended complete alcohol cessation, as this can exacerbate reflux, increasing chance of aspiration pneumonia.. Warned of the signs of withdrawal. Patient drinks intermittently, and no history of withdrawal. Objective Objective Remarks GENERAL: Patientsitting up in chair.. Appears comfortable. On room air Alert and oriented 3. Family at bedside. SKIN: Warm and dry. HEAD: Normocephalic. EYES: No scleral icterus. No injection or drainage. NECK: Supple, trachea midline. No JVD. CARDIOVASCULAR: Regular rate and rhythm without murmurs, gallops, or rubs. RESPIRATORY: She does have crackles over the right mid lung. No rhonchi or wheezes. GASTROINTESTINAL: Abdomen soft, non-tender, nondistended. MUSCULOSKELETAL: No cyanosis, or edema. BACK: Nontender without obvious deformity. No CVA tenderness. A/P Assessment and Plan //Sepsis. Acute. Improving with antibiotics. -Admission With fever 102.5, tachycardia, leukocytosis 14.8. -Lactate within normal limits. -Right sided pneumonia on CT scan. Negative for PE. -Urinalysis appears noninfectious 08/27. Improving, however leukocytosis worsening. New hemoptysis. Continue antibiotics. =appears to be resolved on antibiotics. //Right-sided pneumonia. -Due to sudden onset of symptoms in the middle of the night, suspicion of reflux /aspiration event. -Patient could have been oversedated from gabapentin 600 mg by mouth 3 times a day in setting of impaired renal function. -Started azithromycin and Rocephin in ER. -Switch Rocephin to Unasyn for anaerobic coverage. Continue-Incentive spirometry and Acapella. -08/27. Appears to be clinically improving, with the exception of new mild hemoptysis. Chest x-ray stable. Pulmonology consultation. Continue antibiotics. I to wean oxygen. Oxygen evaluation ordered and pending. =hemoptysis was very mild, and has resolved. unlikely gabapentin to be the cause of reflux. Discharge home on antibiotics to complete treatment course. //Impaired renal function Unknown if chronic or acute. Continues stable. Continue to monitor. //Coronary artery disease //Hypertension //Hyperlipidemia -Continue aspirin, Plavix -Hold amlodipine for today in the setting of sepsis. Continue other blood pressure meds. Restart medications as necessary. -Continue ezetimibe, niacin -08/27. Blood pressure slightly elevated today. Will start back home medications. =blood pressure improved on home medications. //BPH. Continue home Flomax. //GERD. Continue PPI. //Chronic pain. -Continue gabapentin at decreased dose. -Is on 600 milligrams by mouth 3 times a day at home. -Continue to Give 600 mg twice daily here -can go back on home dose. //Chronic insomnia. low-dose Ambien tolerated. //Prophylaxis. SCDs. Lovenox. Discharge Planning patient passed oxygen evaluation. Discharge home Physical therapy reports no need for home care Zohaib Haines MD Sep 01, 2016 08:14
--- NOTE | 2016-09-01 08:17 | HHI.DS ---
Discharge Summary Admission Date Aug 26, 2016 at 07:01 Discharge Date: Aug 28, 2016 Admitting Diagnosis Pneumonia (1) Pneumonia ICD Code: J18.9 (2) Hypoxemia ICD Code: R09.02 Procedures no invasive procedures Brief History - From Admission 81-year-old male with a history of coronary artery disease, hypertension, hyperlipidemia, abdominal aortic repair, GERD, who presents with acute onset fevers and chills, as well as nonproductive cough upon waking at 4 AM this morning. He denies any shortness of breath or chest pain. Denies any dysuria, or hematuria. Denies any nausea or vomiting. Patient was started on antibiotics in the ER. CT pulmonary angiogram with no evidence of PE, however does show right-sided pneumonia. Patient reports chills have improved, however not completely resolved. Patient reports previously feeling well Patient reports driving to [place] from [place] about one week ago, following right eye surgery. He has been staying in his girlfriends [facility] , together with his daughter and her . He denies any changes in medications recently, and again reports feeling well prior to this morning.. Imaging Last Impressions Chest X-Ray 08/27/16 0000 Signed Impressions: Service Date/Time: Saturday, August 27, 2016 08:36 - CONCLUSION: 1. Right-sided pneumonia relatively stable compared to previous study. Amado Mills MD CT Angiography 08/26/16 0605 Signed Impressions: Service Date/Time: Friday, August 26, 2016 07:07 - CONCLUSION: 1. Pneumonic infiltrate involving portions of the right upper and right lower lobe. 2. No pulmonary embolus. Benji Cuevas MD Hospital Course Patient was found to have right-sided pneumonia on chest x-ray, oxygen requirement of 2 L. Chills. He was treated for sepsis, pneumonia with Rocephin , azithromycin, subsequently changed to Unasyn for anaerobic coverage. Patient slowly improved, however did have hemoptysis on hospital day 2, for which pulmonology was consult at. This was mild, "specks of blood "and did improve. Patient came off oxygen, was walking around unit, discharged home with antibiotics to complete treatment course. Recommend alcohol cessation, as this may have contributed to reflux. Patient will need to follow-up with primary care, advised to obtain repeat chest x-ray in 1-2 weeks. For problem-based summary for most recent progress note, please see below. //Sepsis. Acute. Improving with antibiotics. -Admission With fever 102.5, tachycardia, leukocytosis 14.8. -Lactate within normal limits. -Right sided pneumonia on CT scan. Negative for PE. -Urinalysis appears noninfectious 08/27. Improving, however leukocytosis worsening. New hemoptysis. Continue antibiotics. =appears to be resolved on antibiotics. //Right-sided pneumonia. -Due to sudden onset of symptoms in the middle of the night, suspicion of reflux /aspiration event. -Patient could have been oversedated from gabapentin 600 mg by mouth 3 times a day in setting of impaired renal function. -Started azithromycin and Rocephin in ER. -Switch Rocephin to Unasyn for anaerobic coverage. Continue-Incentive spirometry and Acapella. -08/27. Appears to be clinically improving, with the exception of new mild hemoptysis. Chest x-ray stable. Pulmonology consultation. Continue antibiotics. I to wean oxygen. Oxygen evaluation ordered and pending. =hemoptysis was very mild, and has resolved. unlikely gabapentin to be the cause of reflux. Discharge home on antibiotics to complete treatment course. //Impaired renal function Unknown if chronic or acute. Continues stable. Continue to monitor. //Coronary artery disease //Hypertension //Hyperlipidemia -Continue aspirin, Plavix -Hold amlodipine for today in the setting of sepsis. Continue other blood pressure meds. Restart medications as necessary. -Continue ezetimibe, niacin -08/27. Blood pressure slightly elevated today. Will start back home medications. =blood pressure improved on home medications. //BPH. Continue home Flomax. //GERD. Continue PPI. //Chronic pain. -Continue gabapentin at decreased dose. -Is on 600 milligrams by mouth 3 times a day at home. -Continue to Give 600 mg twice daily here -can go back on home dose. //Chronic insomnia. low-dose Ambien tolerated. //Prophylaxis. SCDs. Lovenox. Discharge Planning patient passed oxygen evaluation. Discharge home Physical therapy reports no need for home care Pt Condition on Discharge: Good Discharge Disposition: Discharge Home Discharge Time: <= 30 minutes Discharge Instructions DIET: Follow Instructions for: As Tolerated, No Restrictions Activities you can perform: Regular-No Restrictions Other Activity Instructions: avoid alcohol, which can exacerbate reflux Follow up Referrals: PCP Follow-up - 1 Week New Medications: Amoxicillin-Clavulanate (Augmentin) 875-125 mg Tab 875 MG PO BID not for use in CrCl <30 ml/min. Infection #20 Ref 0 TAB Continued Medications: Amlodipine (Amlodipine) 10 Mg Tab 10 MG PO DAILY Blood Pressure Management #30 Ref 0 TAB Aspirin (Aspirin) 81 Mg Tabdr 81 MG PO DAILY TAB Clopidogrel (Clopidogrel) 75 Mg Tab 75 MG PO DAILY Blood Clot Prevention #30 Ref 0 TAB Ezetimibe (Ezetimibe) 10 Mg Tab 10 MG PO DAILY #30 Ref 0 TAB Gabapentin (Gabapentin) 600 Mg Tab 600 MG PO TID #60 Ref 0 TAB Hydralazine (Hydralazine) 50 Mg Tab 25 MG PO BID Take with a meal Blood Pressure Management Ref 0 TAB Hydrocodone-Acetaminophen (Hydrocodone-Acetaminophen) 5-325 mg Tab 1 TAB PO Q4H PRN PAIN Ref 0 TAB Niacin (Niacin) 500 Mg Tab 500 MG PO DAILY Cholesterol Management #60 Ref 0 TAB Nitroglycerin SL (Nitroglycerin SL) 0.3 Mg Subl 0.3 MG SL DIRECTED ONE TABLET UNDER THE TONGUE NEEDED FOR CHEST PAIN, MAY REPEAT EVERY FIVE MINUTES FOR A TOTAL OF 3 DOSES OR CALL 911 IF NO RELIEF PRN CHEST PAIN #100 Ref 0 TAB.SL Omeprazole (Omeprazole) 20 Mg Tab 20 MG PO DAILY #30 Ref 0 TAB Tamsulosin (Tamsulosin) 0.4 Mg Cap 0.4 MG PO DAILY Manage Prostate Problems #30 Ref 0 CAP Zolpidem (Zolpidem) 10 Mg Tab 10 MG PO HS PRN INSOMNIA Ref 0 TAB Zohaib Haines MD Sep 01, 2016 08:17
== END 2016-08-28 12:40 | disposition home or self-care (01) ==
LOC: NEPC 04:59 → NEDA 07:01 → INTOOBSV 07:01 → NEPHCDU 10:40
PROVIDERS: ADMIT Internal Medicine; ATTEND Internal Medicine
DX: J18.9 Pneumonia, unspecified organism (principal); A41.9 Sepsis, unspecified organism; I25.10 Atherosclerotic heart disease of native coronary artery without angina pectoris; I10 Essential (primary) hypertension; E78.5 Hyperlipidemia, unspecified; K21.9 Gastro-esophageal reflux disease without esophagitis; N40.0 Benign prostatic hyperplasia without lower urinary tract symptoms; N28.9 Disorder of kidney and ureter, unspecified; G89.29 Other chronic pain; F51.04 Psychophysiologic insomnia; I25.2 Old myocardial infarction; E78.00 Pure hypercholesterolemia, unspecified; Z96.653 Presence of artificial knee joint, bilateral; Z79.02 Long term (current) use of antithrombotics/antiplatelets; Z87.891 Personal history of nicotine dependence; Z95.5 Presence of coronary angioplasty implant and graft; Z86.73 Personal history of transient ischemic attack (TIA), and cerebral infarction without residual deficits; Z79.82 Long term (current) use of aspirin
CPT/HCPCS: 71010; 71275; 80048; 80053; 81001; 82550; 83605; 83690; 83735; 83880; 84484; 85025; 85610; 85730; 86140; 87040; 87449; 87641; 87804; 93005; 94150; 94620; 94640; 94664; 94667; 96361; 96374; G0378; G8987-GP; G8988-GP; J0295; J0456; J0696; J1650; J7030; J7040; J7050; Q9967